=== PATIENT | female | born 1965 | race Caucasian/White ===

== ENCOUNTER 2017-05-25 20:19 | Emergency (ER) | payer MEDICAID ==
[~2017-05-25] VITALS: Ht 157.5 cm; Wt 84.8 kg
[~2017-05-25 20:19] MED LIST: ALBUTEROL0.09 MG/A2; CLINDAMYCIN HC300 MG PO; COLACE100 MG PO; GLIPIZIDE10 MG PO; GLIPIZIDE5 M2 PO; GLU5 PO; GLU500; GLU500 PO; LAC PO; LEVAQUIN500 MG PO; MAGNESIUM OXID400 MG PO; MEDDP PO; METFORMIN HCL1000 MG PO; NEU300 PO; NOR10T PO; PRAVASTATIN20 M1 PO; PROINH INH; ZES10 PO; ZESTRIL20 MG PO; ZIT250 PO; ZOC20 PO
[2017-05-25 20:35] VITALS: Ht 157.5 cm; Wt 84.8 kg
[2017-05-25 21:56] VITALS: BP 111/77
== END 2017-05-25 21:56 | disposition home or self-care (01) ==
LOC: ED 20:19
DX: E11.65 Type 2 diabetes mellitus with hyperglycemia (principal); I10 Essential (primary) hypertension; Z88.6 Allergy status to analgesic agent
CPT/HCPCS: J1815

== ENCOUNTER 2017-09-08 18:30 | Emergency (ER) | payer MEDICAID ==
[~2017-09-08] VITALS: Ht 157.5 cm; Wt 83.0 kg
[2017-09-08 18:38] VITALS: Ht 157.5 cm; Wt 83.0 kg
[2017-09-08 20:18] LABS: UA SPECIFIC GRAVITY 1.025 (1.005-1.035); microscopic required? YES; urine erythrocyte NEGATIVE (NEGATIVE)
[2017-09-08 20:49] LABS: BASOPHIL % 0.6 % (0-2); PLATELET COUNT 256 x10^3mcL (130-400); RED CELL DISTRIBUTION WIDTH 14.2 % (11.5-14.5)
[2017-09-08 21:05] LABS: CALCIUM 8.9 mg/dL (8.5-10.1); CARBON DIOXIDE 28.1 mmol/L (21-32); CHLORIDE SERUM 102 mmol/L (98-107); CREATININE SERUM 0.9 mg/dL (0.6-1.0); GFR1 > 60 mL/min; GLUCOSE SERUM 369 mg/dL (74-106); POTASSIUM SERUM 3.9 mmol/L (3.5-5.1); SODIUM SERUM 136 mmol/L (136-145)
[2017-09-08 21:21] LABS: ALKALINE PHOSPHATASE 115 U/L (46-116); ALT/SGPT 82 U/L (14-59); AMYLASE 51 U/L (25-115); AST/SGOT 52 U/L (15-37); BILIRUBIN TOTAL 0.35 mg/dL (0.20-1.00); CHOLESTEROL 195 mg/dL (<200); LIPASE 98 IU/L (73-393); TOTAL PROTEIN, SERUM 7.3 g/dL (6.4-8.2)
[2017-09-08 21:23] LABS: ALBUMIN 3.2 g/dL (3.4-5.0); HDL CHOLESTEROL 32 mg/dL (40-60)
[2017-09-08 23:39] VITALS: BP 127/74
== END 2017-09-08 23:39 | disposition home or self-care (01) ==
LOC: ED 18:30
PROVIDERS: Emergency Medicine
DX: M54.9 Dorsalgia, unspecified (principal); J45.909 Unspecified asthma, uncomplicated; I10 Essential (primary) hypertension; E11.9 Type 2 diabetes mellitus without complications; E66.9 Obesity, unspecified; Z88.6 Allergy status to analgesic agent
CPT/HCPCS: 36600; 83880; J1815; J7030

== ENCOUNTER 2018-03-17 14:59 | Emergency (ER) | payer MEDICAID ==
[~2018-03-17] VITALS: Ht 160 cm; Wt 75.7 kg
[2018-03-17 15:09] VITALS: Ht 160 cm; Wt 75.7 kg
[2018-03-17 17:28] VITALS: BP 132/72
== END 2018-03-17 17:28 | disposition home or self-care (01) ==
LOC: ED 14:59
DX: E11.40 Type 2 diabetes mellitus with diabetic neuropathy, unspecified (principal); I10 Essential (primary) hypertension; E11.9 Type 2 diabetes mellitus without complications; E78.00 Pure hypercholesterolemia, unspecified; F41.9 Anxiety disorder, unspecified; Z98.890 Other specified postprocedural states; Z90.49 Acquired absence of other specified parts of digestive tract; Z88.6 Allergy status to analgesic agent
CPT/HCPCS: J3010; Q0162

== ENCOUNTER 2018-11-25 16:40 | Emergency (ER) | payer MEDICAID ==
[~2018-11-25] VITALS: Ht 152.4 cm; Wt 75.7 kg
[2018-11-25 16:47] VITALS: Ht 152.4 cm; Wt 75.7 kg
[2018-11-25 19:05] VITALS: BP 115/77
== END 2018-11-25 19:05 | disposition home or self-care (01) ==
LOC: ED 16:40
DX: E11.42 Type 2 diabetes mellitus with diabetic polyneuropathy (principal); I10 Essential (primary) hypertension; E78.00 Pure hypercholesterolemia, unspecified; F41.9 Anxiety disorder, unspecified; Z98.890 Other specified postprocedural states; Z88.6 Allergy status to analgesic agent

== ENCOUNTER 2019-01-20 12:34 | Emergency (ER) | payer MEDICAID ==
[~2019-01-20] VITALS: Ht 152.4 cm; Wt 74.4 kg
[2019-01-20 12:44] VITALS: Ht 152.4 cm; Wt 74.4 kg
[2019-01-20 14:06] VITALS: BP 117/59
== END 2019-01-20 14:06 | disposition home or self-care (01) ==
LOC: ED 12:34
DX: J32.9 Chronic sinusitis, unspecified (principal); G44.209 Tension-type headache, unspecified, not intractable; F43.9 Reaction to severe stress, unspecified; I10 Essential (primary) hypertension; E11.9 Type 2 diabetes mellitus without complications; E78.00 Pure hypercholesterolemia, unspecified; F41.9 Anxiety disorder, unspecified; Z98.890 Other specified postprocedural states; Z88.6 Allergy status to analgesic agent
CPT/HCPCS: J2270; Q0162

== ENCOUNTER 2020-05-15 21:48 | Emergency (ER) | payer MEDICAID ==
[~2020-05-15] VITALS: Ht 154.9 cm; Wt 65.8 kg
[2020-05-15 21:51] VITALS: Ht 154.9 cm; Wt 65.8 kg
[2020-05-15 23:01] LABS: BASOPHIL % 0.7 % (0.2-1.3); PLATELET COUNT 249 x10^3mcL (179-408); RED CELL DISTRIBUTION WIDTH 13.2 % (12.3-17.7)
[2020-05-15 23:25] LABS: CALCIUM 8.7 mg/dL (8.5-10.1); CARBON DIOXIDE 28.4 mmol/L (21-32); CHLORIDE SERUM 100 mmol/L (98-107); CREATININE SERUM 0.8 mg/dL (0.6-1.0); GFR1 > 60 mL/min; GLUCOSE SERUM 332 mg/dL (74-106); POTASSIUM SERUM 3.9 mmol/L (3.5-5.1); SODIUM SERUM 136 mmol/L (136-145)
[2020-05-15 23:29] LABS: ALBUMIN 3.4 g/dL (3.4-5.0); ALKALINE PHOSPHATASE 132 U/L (46-116); ALT/SGPT 46 U/L (14-59); AST/SGOT 23 U/L (15-37); BILIRUBIN TOTAL 0.6 mg/dL (0.20-1.00); LIPASE 57 IU/L (73-393)
[2020-05-16 00:31] VITALS: BP 127/75
== END 2020-05-16 00:31 | disposition home or self-care (01) ==
LOC: ED 21:48
DX: E11.43 Type 2 diabetes mellitus with diabetic autonomic (poly)neuropathy (principal); K31.84 Gastroparesis; G90.9 Disorder of the autonomic nervous system, unspecified; K21.9 Gastro-esophageal reflux disease without esophagitis; J45.909 Unspecified asthma, uncomplicated; I10 Essential (primary) hypertension; E78.00 Pure hypercholesterolemia, unspecified; Z90.49 Acquired absence of other specified parts of digestive tract; Z88.6 Allergy status to analgesic agent
CPT/HCPCS: 82962; C9113; J1200; J2765; J7030

== ENCOUNTER 2020-06-04 23:22 | Emergency (ER) | payer MEDICAID ==
[~2020-06-04] VITALS: Ht 154.9 cm; Wt 77.1 kg
[2020-06-04 23:39] VITALS: Ht 154.9 cm; Wt 77.1 kg
[2020-06-04 23:53] LABS: RED CELL DISTRIBUTION WIDTH 13.2 % (12.3-17.7)
[2020-06-04 23:55] LABS: BASOPHIL % 0.8 % (0.2-1.3); PLATELET COUNT 276 x10^3mcL (179-408)
[2020-06-05 00:27] LABS: ALBUMIN 3.5 g/dL (3.4-5.0); ALKALINE PHOSPHATASE 154 U/L (46-116); ALT/SGPT 31 U/L (14-59); AST/SGOT 17 U/L (15-37); BILIRUBIN TOTAL 0.5 mg/dL (0.20-1.00); CALCIUM 8.7 mg/dL (8.5-10.1); CARBON DIOXIDE 24.9 mmol/L (21-32); CHLORIDE SERUM 99 mmol/L (98-107); GFR1 > 60 mL/min; LIPASE 69 IU/L (73-393); POTASSIUM SERUM 3.6 mmol/L (3.5-5.1); SODIUM SERUM 135 mmol/L (136-145); TOTAL PROTEIN, SERUM 7.1 g/dL (6.4-8.2)
[2020-06-05 00:30] LABS: GLUCOSE SERUM 587 mg/dL (74-106)
[2020-06-05 04:53] VITALS: BP 128/62
== END 2020-06-05 04:53 | disposition home or self-care (01) ==
LOC: ED 23:22
PROVIDERS: Emergency Medicine
DX: K57.90 Diverticulosis of intestine, part unspecified, without perforation or abscess without bleeding (principal); E11.43 Type 2 diabetes mellitus with diabetic autonomic (poly)neuropathy; K31.84 Gastroparesis; E11.65 Type 2 diabetes mellitus with hyperglycemia; J45.909 Unspecified asthma, uncomplicated; I10 Essential (primary) hypertension; E78.00 Pure hypercholesterolemia, unspecified; Z98.890 Other specified postprocedural states; Z90.49 Acquired absence of other specified parts of digestive tract; Z88.6 Allergy status to analgesic agent
CPT/HCPCS: 82962; J1815; J2405